=== PATIENT | male | born 1975 | race Hispanic/Latino ===

== ENCOUNTER 2024-03-17 04:28 | Inpatient (IN) | payer BC ==
[~2024-03-17] VITALS: Ht 170.2 cm; Wt 77.1 kg
[2024-03-17 05:34] LABS: BASOPHILS # (AUTO) 0.02 K/uL (0.00-0.20); BASOPHILS % (AUTO) 0.2 % (0.0-5.0); EOSINOPHILS # (AUTO) 0.29 K/uL (0.00-0.70); EOSINOPHILS % (AUTO) 2.4 % (0.0-8.0); HEMATOCRIT 27.7 % (42-54); IMMATURE GRANULOCYTE ABSOLUTE 0.06 K/uL (0-1); LYMPHOCYTES # (AUTO) 2.9 K/uL (1.0-4.8); LYMPHOCYTES % (AUTO) 23.5 % (21.0-51.0); MEAN CORPUSCULAR HEMOGLOBIN 27.8 pg (27.0-33.0); MEAN CORPUSCULAR HGB CONC 34.3 g/dL (32.0-36.0); MONOCYTES # (AUTO) 0.8 K/uL (0.1-1.0); MONOCYTES % (AUTO) 6.7 % (3.0-13.0); NEUTROPHILS # (AUTO) 8.2 K/uL (1.8-7.7); NEUTROPHILS % (AUTO) 66.7 % (40.0-77.0); PLATELET COUNT (AUTO) 445 K/uL (130-400); RED BLOOD CELL COUNT(AUTO) 3.42 MIL/uL (4.50-6.20); RED CELL DISTRIBUTION WIDTH 13.2 % (11.0-15.5); WHITE BLOOD COUNT (AUTO) 12.3 K/uL (4.8-10.8)
[2024-03-17] MEDS: LACTATED RINGERS 1000ML 1,323 ML IV ONE (05:37)
[2024-03-17] MEDS: MORPHINE 4 MG SYG IVP ONE (05:57)
[2024-03-17] MEDS: hydrALAZine 20MG/ML VIAL IV ONE (05:57)
[2024-03-17 06:22] LABS: BILIRUBIN,TOTAL 0.1 mg/dL (0.2-1.0); CREATININE 1.2 mg/dL (0.5-1.3); POTASSIUM 4.2 mmol/L (3.5-5.1); TOTAL PROTEIN, SERUM 6.7 g/dL (6.0-8.3)
[2024-03-17 06:26] LABS: B-TYPE NATRIURETIC PEPTIDE 130 pg/mL (0-100)
[2024-03-17] MEDS ORDERED: VANCOMYCIN PROTOCOL PER PHARMACY IV SCH ×2 (08:00→14:30)
[2024-03-17] MEDS: VANCOMYCIN 1.75 GM/250 ML BAG 250 ML IV ONE (08:14)
[2024-03-17] MEDS ORDERED: MEROPENEM 2 GM in 0.9%NACL 100ML 100 ML IV SCH (09:00)
[2024-03-17] MEDS: MEROPENEM 1 GM VIAL IVPB ONE (09:40)
[2024-03-17] MEDS ORDERED: acetaMINOPHEN 325 MG TAB PO PRN (10:00)
[2024-03-17] MEDS ORDERED: POTASSIUM CHLORIDE 20MEQ/100ML 100 ML IV PRN (10:00)
[2024-03-17] MEDS ORDERED: ONDANSETRON 4MG INJ IVP PRN (10:00)
[2024-03-17] MEDS ORDERED: KCL 20 MEQ ERTAB PO PRN (10:00)
[2024-03-17] MEDS ORDERED: POTASSIUM CHLORIDE 10% ELIXIR 20 MEQ/15 ML UDCUP PO PRN (10:00)
[2024-03-17] MEDS: 0.9%NACL 1000ML 1,000 ML IV SCH ×2 (10:07→15:00)
[2024-03-17 10:51] VITALS: BP 168/94; PULSE 101; RESP 19
[2024-03-17] MEDS: MORPHINE 2 MG SYG IVP PRN (10:59)
[2024-03-17 11:00] VITALS: O2SAT 97
[2024-03-17] MEDS ORDERED: INSU100V12 SQ (11:02)
[2024-03-17] MEDS ORDERED: INSU100I3 SQ (11:02)
[2024-03-17] MEDS ORDERED: ASPI-1197 PO (11:06)
[2024-03-17] MEDS ORDERED: OMEP20CA12 PO (11:06)
[2024-03-17] MEDS: INSULIN HUMULIN R 100 UNIT/ML 3ML SQ SCH (13:04)
[2024-03-17] MEDS: ASPIRIN 81 MG EC TAB PO ONE (13:43)
[2024-03-17] MEDS: CLOPIDOGREL 75MG TAB PO ONE (13:43)
[2024-03-17] MEDS ORDERED: PHARMACY COMMUNICATION MISC SCH (14:00)
[2024-03-17] MEDS ORDERED: IOHEXOL-350 50ML VIAL IV ONE (14:42)
[2024-03-17] MEDS ORDERED: IOHEXOL-350 75 ML VIAL IV ONE (14:43)
[2024-03-17] MEDS: DiphenhydrAMINE HCL 50 MG/ML VIAL IV ONE (15:00)
[2024-03-17] MEDS: FAMOTIDINE 20MG VIAL IV ONE (15:00)
[2024-03-17] MEDS: SOLU-MEDROL 125MG VIAL IVP ONE (15:00)
[2024-03-17 16:00] VITALS: BP 155/98; PULSE 96; RESP 19
[2024-03-17 16:10] LABS: AMPHET/METH SCREEN,URINE POSITIVE (NEGATIVE); BARBITURATE SCREEN, URINE NEGATIVE (NEGATIVE); BENZODIAZEPINES SCREEN,URINE NEGATIVE (NEGATIVE); CANNABINOID SCREEN,URINE NEGATIVE (NEGATIVE); COCAINE SCREEN,URINE NEGATIVE (NEGATIVE); OPIATE SCREEN,URINE NEGATIVE (NEGATIVE); PHENCYCLIDINE SCREEN,URINE NEGATIVE (NEGATIVE)
[2024-03-17 16:18] LABS: APPEARANCE,URINE CLEAR (CLEAR); BILIRUBIN,URINE NEGATIVE (NEGATIVE); COLOR,URINE LIGHT-YELLOW (YELLOW); GLUCOSE, URINE (UA) >=1000 mg/dL (NEGATIVE); KETONES,URINE NEGATIVE (NEGATIVE); LEUKOCYTE ESTERASE ,URINE 25 Leu/uL (NEGATIVE); NITRATE,URINE NEGATIVE (NEGATIVE); PH,URINE 7.5 (5.0-8.0); PROTEIN,URINE 300 mg/dL (NEGATIVE); UROBILINOGEN,URINE 0.2 mg/dL (0.2-1.0)
[2024-03-17 16:19] LABS: ADD UA MICROSCOPIC YES
[2024-03-17 16:25] LABS: SQUAMOUS EPITHELIAL CELL,UR RARE /HPF (0-2)
[2024-03-17 20:00] VITALS: BP 172/99; PULSE 93; RESP 19
[2024-03-17] MEDS: ATORVASTATIN 40 MG TABLET PO SCH (21:49)
[2024-03-17 23:34] VITALS: BP 139/82; PULSE 88; RESP 16
[2024-03-18] VITALS (8 sets, daily range): BP systolic 144–166; BP diastolic 91–98; PULSE 90–103; RESP 17–20; O2SAT 97
[2024-03-18 07:11] LABS: CHOLESTEROL 147 mg/dL (<200); HDL CHOLESTEROL 33 mg/dL (29-71); LDL DIRECT 92 mg/dL (0-99); TRIGLYCERIDES 85 mg/dL (30-200)
[2024-03-18] MEDS: INSULIN HUMULIN R 100 UNIT/ML 3ML SQ ONE (07:28)
[2024-03-18] MEDS: INSULIN GLARGINE 100 UNITS/ML 10 ML VIAL SQ SCH (09:14)
[2024-03-18] MEDS: FAMOTIDINE 20MG TAB PO SCH (09:15)
[2024-03-18] MEDS: ASPIRIN 81 MG EC TAB PO SCH (09:15)
[2024-03-18] MEDS: CLOPIDOGREL 75MG TAB PO SCH (09:16)
[2024-03-18] MEDS: LEVOFLOXACIN 750 MG/D5W 150 ML 150 ML IV SCH (09:16)
[2024-03-18] MEDS: VANCOMYCIN 1.5 GM/250 ML BAG 250 ML IV SCH (10:27)
[2024-03-18] MEDS: TAMSULOSIN HCL 0.4 MG CAP.ER.24H PO ONE (10:33)
[2024-03-18] MEDS: HYDROCODONE/ACETAMINOPHEN 5/325 MG TAB PO PRN (12:26)
[2024-03-19 04:25] VITALS: BP 150/88; PULSE 98; RESP 19
[2024-03-19 04:50] LABS: BASOPHILS # (AUTO) 0.02 K/uL (0.00-0.20); BASOPHILS % (AUTO) 0.1 % (0.0-5.0); EOSINOPHILS # (AUTO) 0.09 K/uL (0.00-0.70); EOSINOPHILS % (AUTO) 0.6 % (0.0-8.0); HEMATOCRIT 30.2 % (42-54); IMMATURE GRANULOCYTE ABSOLUTE 0.08 K/uL (0-1); LYMPHOCYTES # (AUTO) 2.7 K/uL (1.0-4.8); LYMPHOCYTES % (AUTO) 17.1 % (21.0-51.0); MEAN CORPUSCULAR HEMOGLOBIN 28.2 pg (27.0-33.0); MEAN CORPUSCULAR HGB CONC 34.8 g/dL (32.0-36.0); MONOCYTES # (AUTO) 0.9 K/uL (0.1-1.0); MONOCYTES % (AUTO) 5.7 % (3.0-13.0); NEUTROPHILS # (AUTO) 11.9 K/uL (1.8-7.7); PLATELET COUNT (AUTO) 448 K/uL (130-400); RED BLOOD CELL COUNT(AUTO) 3.73 MIL/uL (4.50-6.20); RED CELL DISTRIBUTION WIDTH 13.3 % (11.0-15.5); WHITE BLOOD COUNT (AUTO) 15.7 K/uL (4.8-10.8)
[2024-03-19 05:16] LABS: ALBUMIN 1.7 g/dL (3.5-5.0); BILIRUBIN,TOTAL 0.2 mg/dL (0.2-1.0); MAGNESIUM 1.6 mg/dL (1.80-2.40); POTASSIUM 3.4 mmol/L (3.5-5.1); TOTAL PROTEIN, SERUM 6.5 g/dL (6.0-8.3)
[2024-03-19] MEDS: MAGNESIUM 2GM PREMIX 50ML 50 ML IV PRN (06:55)
[2024-03-19] MEDS ORDERED: MONTELUKAST SODIUM 10 MG TAB PO STA (07:22)
[2024-03-19] MEDS ORDERED: PREDNISONE 20 MG TABLET PO ONE (07:30)
[2024-03-19] MEDS ORDERED: 0.9% NACL 500ML IV.SOLN 500 ML IV SCH (07:30)
[2024-03-19] MEDS: TAMSULOSIN HCL 0.4 MG CAP.ER.24H PO SCH (10:51)
[2024-03-19] MEDS: INSULIN HUMULIN R 100 UNIT/ML 3ML SQ SCH (11:30)
[2024-03-19 11:45] VITALS: BP 158/106; PULSE 94; RESP 18
[2024-03-19 16:00] VITALS: BP 162/108; PULSE 96; RESP 18
[2024-03-19 16:30] VITALS: O2SAT 97
[2024-03-19 20:00] VITALS: BP 150/91; PULSE 91; RESP 19
[2024-03-19] MEDS: LEVOFLOXACIN 750 MG/D5W 150 ML 150 ML IV SCH (20:37)
[2024-03-19 21:50] VITALS: O2SAT 97
[2024-03-20 00:06] VITALS: BP 164/87; PULSE 96; RESP 20
[2024-03-20 04:29] VITALS: BP 152/86; PULSE 87; RESP 18
[2024-03-20 08:00] VITALS: BP 180/96; PULSE 91; RESP 18; O2SAT 97
[2024-03-20 09:28] LABS: BASOPHILS # (AUTO) 0.02 K/uL (0.00-0.20); BASOPHILS % (AUTO) 0.2 % (0.0-5.0); EOSINOPHILS # (AUTO) 0.15 K/uL (0.00-0.70); EOSINOPHILS % (AUTO) 1.3 % (0.0-8.0); HEMATOCRIT 35.5 % (42-54); IMMATURE GRANULOCYTE ABSOLUTE 0.05 K/uL (0-1); LYMPHOCYTES % (AUTO) 17.7 % (21.0-51.0); MEAN CORPUSCULAR HEMOGLOBIN 27.7 pg (27.0-33.0); MEAN CORPUSCULAR HGB CONC 33.5 g/dL (32.0-36.0); MEAN CORPUSCULAR VOLUME 82.8 fL (79-99); MONOCYTES # (AUTO) 0.6 K/uL (0.1-1.0); MONOCYTES % (AUTO) 5.6 % (3.0-13.0); NEUTROPHILS # (AUTO) 8.5 K/uL (1.8-7.7); NEUTROPHILS % (AUTO) 74.8 % (40.0-77.0); PLATELET COUNT (AUTO) 495 K/uL (130-400); RED BLOOD CELL COUNT(AUTO) 4.29 MIL/uL (4.50-6.20); RED CELL DISTRIBUTION WIDTH 13.5 % (11.0-15.5); WHITE BLOOD COUNT (AUTO) 11.4 K/uL (4.8-10.8)
[2024-03-20 09:40] LABS: CREATININE 0.9 mg/dL (0.5-1.3); MAGNESIUM 1.6 mg/dL (1.80-2.40); POTASSIUM 3.8 mmol/L (3.5-5.1)
[2024-03-20 12:00] VITALS: BP 172/107; PULSE 95; RESP 18
[2024-03-20] MEDS: amLODIPine 5 MG TAB PO SCH (13:00)
[2024-03-20 16:00] VITALS: BP 141/78; PULSE 92; RESP 18
[2024-03-20] MEDS ORDERED: SOLU-MEDROL 125MG VIAL IVP PRN (17:00)
[2024-03-20] MEDS ORDERED: FAMOTIDINE 20MG VIAL IV PRN (17:00)
[2024-03-20] MEDS: 0.9%NACL 1000ML 1,000 ML IV SCH (17:00)
[2024-03-20] MEDS ORDERED: DiphenhydrAMINE HCL 50 MG/ML VIAL IVP PRN (17:00)
[2024-03-20] MEDS ORDERED: LEVOFLOXACIN 750 MG/D5W 150 ML 150 ML IV SCH (21:00)
== END 2024-03-20 18:40 | disposition left against medical advice (07) | DRG 637 ==
LOC: EDH 04:28 → EDHIP 09:46 → 4CH 11:00 → 4BH 03-19 06:01
PROVIDERS: ADMIT Internal Medicine Sleep Medicine; ATTEND Internal Medicine Sleep Medicine
DX: E11.69 Type 2 diabetes mellitus with other specified complication (principal); E43 Unspecified severe protein-calorie malnutrition; Z59.00 Homelessness unspecified; M86.172 Other acute osteomyelitis, left ankle and foot; N17.0 Acute kidney failure with tubular necrosis; L97.523 Non-pressure chronic ulcer of other part of left foot with necrosis of muscle; E11.621 Type 2 diabetes mellitus with foot ulcer; D64.9 Anemia, unspecified; E78.00 Pure hypercholesterolemia, unspecified; Z60.8 Other problems related to social environment; I10 Essential (primary) hypertension; B35.1 Tinea unguium; F19.10 Other psychoactive substance abuse, uncomplicated; Z53.29 Procedure and treatment not carried out because of patient's decision for other reasons; B95.62 Methicillin resistant Staphylococcus aureus infection as the cause of diseases classified elsewhere; F17.210 Nicotine dependence, cigarettes, uncomplicated; Z68.26 Body mass index [BMI] 26.0-26.9, adult; E66.9 Obesity, unspecified; E11.51 Type 2 diabetes mellitus with diabetic peripheral angiopathy without gangrene; Z91.041 Radiographic dye allergy status; Z91.199 Patient's noncompliance with other medical treatment and regimen due to unspecified reason; Z89.512 Acquired absence of left leg below knee; Z89.511 Acquired absence of right leg below knee; Z88.0 Allergy status to penicillin; Z83.3 Family history of diabetes mellitus; Z79.899 Other long term (current) drug therapy; Z79.82 Long term (current) use of aspirin; Z79.4 Long term (current) use of insulin; Z79.02 Long term (current) use of antithrombotics/antiplatelets
CPT/HCPCS: 36415; 71045; 73630; 73718; 75635; 80048; 80053; 80061; 80202; 80305; 81001; 82948; 83605; 83735; 83880; 84145; 84484; 85025; 87070; 87076; 87086; 87186; 93005; 93926; G0378; J0360; J1200; J1815; J1956; J2185; J2270; J2919; J3475; J3490; Q9967; J3370